=== PATIENT | male | born 1980 | race Caucasian/White ===

== ENCOUNTER 2019-12-15 03:41 | Inpatient (IN) | payer MEDICAID, OTHER ==
[~2019-12-15] VITALS: Ht 177.8 cm; Wt 90.7 kg
[2019-12-15] MEDS ORDERED: cloNIDine HCL 0.1 MG TAB PO ONE ×2 (04:00→04:45)
[2019-12-15 04:09] LABS: Basophils # (auto) 0.1 10 ^3/uL (0-0.2); Basophils % (auto) 0.8 % (0.0-2.0); Eosinophils # (auto) 0 10 ^3/uL (0-0.8); Eosinophils % (auto) 0.4 % (0.0-7.0); Hematocrit 40.8 % (41.0-53.0); Hemoglobin 14.3 g/dL (13.5-17.5); Lymphocytes # (auto) 1.3 10 ^3/uL (0.4-5.4); Lymphocytes % (auto) 11.3 % (10.0-50.0); Mean Corpuscular Hemoglobin 29.6 pg (28.0-32.0); Mean Corpuscular Hgb Conc. 35.2 g/dL (32.0-36.0); Mean Corpuscular Volume 84.2 fL (80.0-100.0); Monocytes # (auto) 0.4 10 ^3/uL (0-1.3); Monocytes % (auto) 3.8 % (0.0-12.0); Neutrophils # (auto) 9.7 10 ^3/uL (1.6-8.6); Neutrophils % (auto) 83.7 % (37.0-80.0); Nucleated Red Blood Cells % 0.2 %; Platelet Count (auto) 250 10^3/uL (140-450); Red Blood Cells 4.85 10^6/uL (4.5-5.90); Red Cell Distribution Width 13.3 % (11.8-14.3); White Blood Cell 11.5 10^3/uL (4.4-10.8)
[2019-12-15] MEDS ORDERED: hydrALAZINE HCL 20 MG/ML VL ONE (04:22)
[2019-12-15] MEDS ORDERED: ONDANSETRON HCL 4 MG/2 ML VIAL ONE (04:23)
[2019-12-15 04:26] LABS: Albumin 2.4 g/dL (3.4-5.0); Calcium 8.3 mg/dL (8.5-10.1)
[2019-12-15 04:28] LABS: BUN/Creatinine Ratio 7.5
[2019-12-15 04:33] LABS: Bilirubin, Total 1.6 mg/dL (0.2-1.0); Total Protein 6.7 g/dL (6.4-8.2)
[2019-12-15 04:42] LABS: Urine Bacteria FEW /hpf (None Seen); Urine Blood 2+ /uL (Negative); Urine Hyaline Cast MOD /lpf (0 - 2); Urine Mucus FEW (None Seen); Urine Specific Gravity 1.023 (1.001-1.035); Urine WBC 7 /hpf (0 - 3)
[2019-12-15 04:45] LABS: Potassium 2.6 mmol/L (3.5-5.1)
[2019-12-15] MEDS ORDERED: hydrALAZINE HCL 20 MG/ML VL IV ONE (04:45)
[2019-12-15] MEDS ORDERED: ONDANSETRON HCL 4 MG/2 ML VIAL IV ONE (04:45)
[2019-12-15 04:47] LABS: Alcohol, Urine < 3.0 mg/dL (0-10); Amphetamine Screen, Urine NEGATIVE (NEGATIVE); Barbiturate Scree,Urine NEGATIVE (NEGATIVE); Benzodiazephine Screen, Urine NEGATIVE (NEGATIVE); Cannabinoid Screen, Urine NEGATIVE (NEGATIVE); Cocaine Screen, Urine NEGATIVE (NEGATIVE); Opiate Scree,Urine NEGATIVE (NEGATIVE); Phencyclidine Screen, Urine NEGATIVE (NEGATIVE)
[2019-12-15] MEDS ORDERED: POTASSIUM CHL 20MEQ/100ML 200 ML IV ONE (04:56)
[2019-12-15] MEDS ORDERED: dilTIAZem 25 MG/5 ML VIAL IV ONE ×2 (05:11→05:15)
[2019-12-15 05:20] LABS: Lactic Acid w/Reflex 2.1 mmol/L (0.4-2.0)
[2019-12-15] MEDS: POTASSIUM CHL 20MEQ/100ML 100 ML IV SCH ×2 (05:27→07:29)
[2019-12-15] MEDS ORDERED: SODIUM CHLORIDE 0.9% 1,000 ML IV ONE (05:30)
[2019-12-15] MEDS ORDERED: LABETALOL HCL 5 MG/ML 4ML SYRINGE IV ONE ×2 (06:00→06:01)
[2019-12-15] MEDS ORDERED: SODIUM CHLORIDE 0.9% 1,000 ML IV SCH ×2 (06:28→07:30)
[2019-12-15] MEDS ORDERED: ONDANSETRON HCL 4 MG/2 ML VIAL IV PRN (06:30)
[2019-12-15] MEDS ORDERED: IPRATROPIUM BROM 0.5 MG/2.5ML INH SOL NEB PRN (06:30)
[2019-12-15] MEDS ORDERED: ENOXAPARIN SOD 30 MG/0.3 ML SYRINGE IV ONE (06:30)
[2019-12-15] MEDS ORDERED: DOCUSATE SOD 100 MG CAP PO PRN (06:30)
[2019-12-15] MEDS ORDERED: NITROGLYCERIN 0.4 MG SL TAB SL PRN (06:30)
[2019-12-15] MEDS ORDERED: LORazepam 0.5 MG TAB PO PRN (06:30)
[2019-12-15] MEDS ORDERED: DEXTROSE (50%) 50ML SYRG IV PRN (06:30)
[2019-12-15] MEDS ORDERED: HYDROcodone-ACET 5/325MG TAB PO PRN (06:30)
[2019-12-15] MEDS ORDERED: cloNIDine HCL 0.1 MG TAB PO PRN (06:30)
[2019-12-15] MEDS ORDERED: MORPHINE SULF INJ 2 MG/ML SYRINGE 1ML IV PRN (06:30)
[2019-12-15] MEDS ORDERED: ACETAMINOPHEN 325 MG TAB PO PRN (06:30)
[2019-12-15] MEDS: cefTRIAXone 1GM/50ML D5W 50 ML IV SCH ×2 (07:00→09:53)
[2019-12-15 08:47] VITALS: BP 187/101
[2019-12-15] MEDS ORDERED: cefTRIAXone 1GM/50ML D5W 50 ML IV SCH (10:00)
[2019-12-15] MEDS ORDERED: CARVEDILOL 3.125 MG TAB PO SCH (10:00)
[2019-12-15] MEDS ORDERED: LISINOPRIL 20 MG TAB PO SCH (10:00)
[2019-12-15] MEDS ORDERED: ASPirin 81 mg TAB PO SCH (10:00)
[2019-12-15] MEDS ORDERED: LISINOPRIL 10 MG TAB PO SCH (10:00)
[2019-12-15] MEDS ORDERED: CLOPIDOGREL BISULFATE 75 MG TAB PO SCH (10:00)
[2019-12-15] MEDS ORDERED: ACCU-CHEK COMFORT CURVE STRIP VI SCH (12:00)
[2019-12-15] MEDS ORDERED: InsuLIN REG 1unit/0.01ml Soln (100units/ml) SC SCH (12:00)
[2019-12-15] MEDS ORDERED: ATORVASTATIN 20 MG TAB PO SCH (22:00)
== END 2019-12-15 13:10 | disposition left against medical advice (07) | DRG 190 ==
LOC: ER 03:41 → EDBD 03:41 → TELE 03:42
PROVIDERS: ADMIT Hospitalist; ATTEND Hospitalist
DX: I21.4 Non-ST elevation (NSTEMI) myocardial infarction (principal); E10.22 Type 1 diabetes mellitus with diabetic chronic kidney disease; E10.51 Type 1 diabetes mellitus with diabetic peripheral angiopathy without gangrene; E10.319 Type 1 diabetes mellitus with unspecified diabetic retinopathy without macular edema; I16.0 Hypertensive urgency; Z53.29 Procedure and treatment not carried out because of patient's decision for other reasons; E87.6 Hypokalemia; I12.9 Hypertensive chronic kidney disease with stage 1 through stage 4 chronic kidney disease, or unspecified chronic kidney disease; N18.9 Chronic kidney disease, unspecified; Z79.4 Long term (current) use of insulin; Z82.49 Family history of ischemic heart disease and other diseases of the circulatory system; Z79.899 Other long term (current) drug therapy
CPT/HCPCS: 36415; 70450; 71045; 80053; 80307; 81001; 82962; 83605; 83880; 84484; 85025; 87086; 96365; 96366; 96375; G0378; J0696; J1815; J2405; J3480; J3490

== ENCOUNTER 2021-09-13 10:17 | Emergency (ER) | payer MEDICAID ==
[~2021-09-13] VITALS: Ht 177.8 cm; Wt 86.2 kg
[2021-09-13 10:35] VITALS: BP 191/83
[2021-09-13 11:11] LABS: Basophils # (auto) 0.1 10 ^3/uL (0-0.2); Hemoglobin 7.4 g/dL (13.5-17.5); Lymphocytes # (auto) 0.8 10 ^3/uL (0.4-5.4); Monocytes # (auto) 0.5 10 ^3/uL (0-1.3); Monocytes % (auto) 4.9 % (0.0-12.0); Neutrophils # (auto) 7.7 10 ^3/uL (1.6-8.6); Red Blood Cells 2.39 10^6/uL (4.5-5.90); White Blood Cell 9.6 10^3/uL (4.4-10.8)
[2021-09-13 11:12] LABS: Basophils % (auto) 1.5 % (0.0-2.0); Eosinophils # (auto) 0.5 10 ^3/uL (0-0.8); Eosinophils % (auto) 4.7 % (0.0-7.0); Hematocrit 21.6 % (41.0-53.0); Lymphocytes % (auto) 8.7 % (10.0-50.0); Mean Corpuscular Hemoglobin 30.8 pg (28.0-32.0); Mean Corpuscular Hgb Conc. 34.1 g/dL (32.0-36.0); Mean Corpuscular Volume 90.2 fL (80.0-100.0); Neutrophils % (auto) 80.2 % (37.0-80.0); Red Cell Distribution Width 14.5 % (11.8-14.3)
[2021-09-13 12:00] LABS: Albumin 2.5 g/dL (3.4-5.0); BUN/Creatinine Ratio 4.3; Calcium 8.3 mg/dL (8.5-10.1); Potassium 4.4 mmol/L (3.5-5.1)
[2021-09-13 12:03] LABS: Bilirubin, Total 0.2 mg/dL (0.2-1.0)
== END 2021-09-13 12:37 | disposition left against medical advice (07) ==
LOC: ER 10:17
DX: E11.22 Type 2 diabetes mellitus with diabetic chronic kidney disease (principal); I12.0 Hypertensive chronic kidney disease with stage 5 chronic kidney disease or end stage renal disease; N18.6 End stage renal disease
CPT/HCPCS: 36415; 71045; 80053; 83880; 84484; 85025